=== PATIENT | female | born 1990 | race Caucasian/White ===

== ENCOUNTER 2016-08-12 09:20 | Emergency (ER) | payer MEDICAID | END 2016-08-12 11:56 | disposition home or self-care (01) | LOC: D.ER 09:20 | DX: S60.222A Contusion of left hand, initial encounter (principal); S00.83XA Contusion of other part of head, initial encounter; Y04.2XXA Assault by strike against or bumped into by another person, initial encounter; Y93.89 Activity, other specified; Y92.89 Other specified places as the place of occurrence of the external cause; S00.81XA Abrasion of other part of head, initial encounter; H11.32 Conjunctival hemorrhage, left eye; J45.909 Unspecified asthma, uncomplicated ==

== ENCOUNTER 2017-09-02 14:12 | Emergency (ER) | payer MEDICAID | END 2017-09-02 15:49 | disposition home or self-care (01) | LOC: D.ER 14:12 | DX: G43.909 Migraine, unspecified, not intractable, without status migrainosus (principal) ==

== ENCOUNTER 2018-02-26 07:39 | Emergency (ER) | payer SELFPAY ==
[~2018-02-26] VITALS: Ht 172.7 cm; Wt 159.1 kg
[2018-02-26 07:43] VITALS: Ht 172.7 cm; Wt 159.1 kg
[2018-02-26] MEDS ORDERED: NORCO 7.5/325 T1 TA1 PO (08:01)
[2018-02-26 09:05] VITALS: BP 142/66
== END 2018-02-26 09:06 | disposition home or self-care (01) ==
LOC: D.ER 07:39
DX: S39.012A Strain of muscle, fascia and tendon of lower back, initial encounter (principal); W17.89XA Other fall from one level to another, initial encounter; Y93.89 Activity, other specified; Y92.89 Other specified places as the place of occurrence of the external cause; M51.26 Other intervertebral disc displacement, lumbar region

== ENCOUNTER 2018-03-26 20:21 | Emergency (ER) | payer SELFPAY ==
[~2018-03-26] VITALS: Ht 172.7 cm; Wt 159.1 kg
[~2018-03-26 20:21] MED LIST: NORCO 7.5/325 T1 TA1 PO
[2018-03-26 20:32] VITALS: Ht 172.7 cm; Wt 159.1 kg
[2018-03-26 20:48] LABS: BASOPHILS 0.1 % (0-2); EOSINOPHILS 1.1 % (0-7); HEMATOCRIT 43.4 % (36.0-48.0); HEMOGLOBIN 15.3 g/dL (12-16); IMMATURE GRANULOCYTES 0.1 % (0-5); LYMPHOCYTES 38.1 % (15-50); MCH 31.5 pg (26.0-34.0); MCHC 35.3 g/dL (31.0-37.0); MCV 89.5 fL (80.0-100.0); MEAN PLATELET VOLUME 10.4 fL (7.4-10.4); MONOCYTES 6.8 % (2-11); NEUTROPHILS 53.8 % (40-80); PLATELET COUNT 274 10x3/uL (130-400); RBC 4.85 10x6/uL (4.00-5.40); RDW 12.9 % (11.5-14.5); WBC 10.3 10x3/uL (4.8-10.8)
[2018-03-26 21:12] LABS: ANION GAP 15.6 mmol/L (8-16); BILIRUBIN - TOTAL 0.19 mg/dL (0.2-1.3); CALCIUM 8.7 mg/dL (8.5-10.1); CARBON DIOXIDE 24.4 mmol/L (21.0-32.0); PROTEIN - SERUM 7.8 g/dL (6.4-8.2)
[2018-03-26 21:17] LABS: APPEARANCE CLEAR (CLEAR); BILIRUBIN NEGATIVE (NEGATIVE); COLOR STRAW (YELLOW); GLUCOSE NEGATIVE (NEGATIVE); KETONE NEGATIVE (NEGATIVE); NITRITE NEGATIVE (NEGATIVE); PROTEIN NEGATIVE (NEGATIVE); UROBILINOGEN NORMAL (NORMAL)
[2018-03-26] MEDS ORDERED: IMODIUM2 MG PO (22:15)
[2018-03-26] MEDS ORDERED: PHENERGAN25 M1 PO (22:15)
[2018-03-26 22:55] VITALS: BP 138/71
== END 2018-03-26 22:55 | disposition home or self-care (01) ==
LOC: D.ER 20:21
PROVIDERS: Family Medicine
DX: B34.9 Viral infection, unspecified (principal); R19.7 Diarrhea, unspecified; R51 Headache

== ENCOUNTER 2018-04-16 05:48 | Emergency (ER) | payer SELFPAY ==
[~2018-04-16] VITALS: Ht 172.7 cm; Wt 159.1 kg
[~2018-04-16 05:48] MED LIST changes: +IMODIUM2 MG PO; +PHENERGAN25 M1 PO
[2018-04-16 05:57] VITALS: Ht 172.7 cm; Wt 159.1 kg
[2018-04-16 06:50] LABS: BASOPHILS 0.1 % (0-2); EOSINOPHILS 1.1 % (0-7); HEMATOCRIT 41.3 % (36.0-48.0); HEMOGLOBIN 14.3 g/dL (12-16); IMMATURE GRANULOCYTES 0.2 % (0-5); LYMPHOCYTES 21.3 % (15-50); MCH 31.2 pg (26.0-34.0); MCHC 34.6 g/dL (31.0-37.0); MEAN PLATELET VOLUME 10.7 fL (7.4-10.4); MONOCYTES 6.2 % (2-11); NEUTROPHILS 71.1 % (40-80); PLATELET COUNT 248 10x3/uL (130-400); RBC 4.59 10x6/uL (4.00-5.40); RDW 13.4 % (11.5-14.5); WBC 10.4 10x3/uL (4.8-10.8)
[2018-04-16 07:13] LABS: HCG URINE NEGATIVE (NEGATIVE)
[2018-04-16 07:14] LABS: APPEARANCE HAZY (CLEAR); BILIRUBIN NEGATIVE (NEGATIVE); COLOR STRAW (YELLOW); GLUCOSE NEGATIVE (NEGATIVE); KETONE NEGATIVE (NEGATIVE); NITRITE POSITIVE (NEGATIVE); PROTEIN 1+ mg/dL (NEGATIVE); UROBILINOGEN NORMAL (NORMAL)
[2018-04-16 07:15] LABS: BACTERIA MODERATE /hpf (NONE SEEN); EPITHELIAL CELLS 0-5 /hpf (0-5); RED CELLS - URINE 0-5 /hpf (0-5)
[2018-04-16 07:19] LABS: ALBUMIN 3.7 g/dL (3.4-5.0); ALKALINE PHOSPHATASE 81 U/L (46-116); ALT (SGPT) 22 U/L (10-68); BILIRUBIN - TOTAL 0.52 mg/dL (0.2-1.3); CALC OSMOLALITY 277 mosm/kg (275-300); CALCIUM 9.1 mg/dL (8.5-10.1); CARBON DIOXIDE 26.3 mmol/L (21.0-32.0); CHLORIDE - SERUM 105 mmol/L (98-107); CREATININE - SERUM 0.8 mg/dL (0.6-1.3); GLUCOSE 118 mg/dL (74-106); LIPASE 90 U/L (73-393); POTASSIUM - SERUM 4.1 mmol/L (3.5-5.1); PROTEIN - SERUM 7.6 g/dL (6.4-8.2); SODIUM 140 mmol/L (136-145); UREA NITROGEN 8 mg/dL (7-18); eGFR NON AFRICAN AMERICAN > 90 mL/min (90-120)
[2018-04-16] MEDS ORDERED: CIPRO500 MG PO (10:30)
[2018-04-16 10:59] VITALS: BP 122/68
== END 2018-04-16 11:01 | disposition home or self-care (01) ==
LOC: D.ER 05:48
PROVIDERS: Family Medicine
DX: N30.00 Acute cystitis without hematuria (principal)